=== PATIENT | male | born 1995 | race Caucasian/White ===

== ENCOUNTER 2021-11-27 09:16 | Inpatient (IN) ==
[2021-11-27] MEDS ORDERED: Iopamidol - 370 500 ML MLS IVP ONE (10:16)
[2021-11-27 11:02] LABS: Basophils % 0.4 %; Eosinophils # 0.2 K/mcL (0.0-0.6); Eosinophils % 2.7 %; Hematocrit 43.7 % (37.5-50.1); Immature Granulocytes % 0.3 % (0-4); Lymphocytes % 21.9 %; Mean Corpuscular HGB Conc 34.3 g/dL (31.6-35.5); Mean Corpuscular Hemoglobin 30.3 pg (28.0-33.3); Mean Corpuscular Volume 88.3 fL (83.0-100.0); Mean Platelet Volume 10.2 fL (9.4-12.4); Monocytes # 0.7 K/mcL (0.0-1.3); Monocytes % 7.4 %; Platelet Count 332 K/mcL (140-400); Red Blood Count 4.95 M/mcL (4.19-5.50); Red Cell Distribution Width 11.9 % (11.5-14.5); Segmented Neutrophils % 67.3 %; White Blood Count 8.9 K/mcL (4.3-11.1)
[2021-11-27 11:24] LABS: Alanine Aminotransferase 47 Units/L (7-52); Albumin 4.5 g/dL (3.5-5.7); Albumin/Globulin Ratio 1.5 (1.1-2.2); Alkaline Phosphatase 56 Units/L (34-104); Aspartate Amino Transferase 21 Units/L (13-39); BUN/Creatinine Ratio 11 (6-26); Bilirubin,Total 0.8 mg/dL (0.3-1.0); Blood Urea Nitrogen 10 mg/dL (6-20); Calcium 9.1 mg/dL (8.6-10.3); Carbon Dioxide 30 mEq/L (23-29); Chloride 101 mEq/L (98-107); Glucose 99 mg/dL (70-105); Osmolality,Calculated 279 (280-300); Potassium 3.8 mEq/L (3.5-5.1); Sodium 135 mEq/L (136-145); Total Protein 7.5 g/dL (6.4-8.9)
[2021-11-27 14:38] LABS: C-Reactive Protein 49 mg/L (Less than 10)
[2021-11-27] MEDS ORDERED: Morphine Sulfate 2 MG/ML SYRINGE IVP ONE (14:38)
[2021-11-27] MEDS ORDERED: Naloxone 0.4 MG/ML INJ IVP PRN (15:41)
[2021-11-27] MEDS ORDERED: Ondansetron ODT 4 MG TAB.RAPDIS SL PRN (15:41)
[2021-11-27] MEDS ORDERED: *HR* HYDROcodone/Acet 5/325 mg TABLET PO PRN (15:41)
[2021-11-27] MEDS ORDERED: Melatonin 3 MG TABLET PO PRN (15:41)
[2021-11-27] MEDS ORDERED: Acetaminophen 325 MG TABLET PO PRN (15:41)
[2021-11-27] MEDS: *HR* OxyCODONE Immed Rel 5 MG TABLET PO PRN ×2 (17:24→23:24)
[2021-11-27] MEDS ORDERED: Morphine Sulfate 2 MG/ML SYRINGE IVP PRN (17:40)
[2021-11-27] MEDS ORDERED: Piperacillin/Tazobactam 3.375 GM in 0.9 % Sodium Chloride Mini Bag 100 ML IVPB SCH (18:00)
[2021-11-27] MEDS: Piperacillin/Tazobactam 3.375 GM in 0.9 % Sodium Chloride Mini Bag 100 ML IVPB SCH (18:53)
[2021-11-27] MEDS: *HR* Heparin 5,000 UNIT/ML VIAL SQ SCH ×2 (18:53→23:31)
[2021-11-27] MEDS ORDERED: Vancomycin 2,000 MG/520 ML IV.SOLN IVPB ONE (19:00)
[2021-11-27] MEDS ORDERED: 0.9 % Sodium Chloride 1,000 ML IVC SCH (23:15)
[2021-11-27] MEDS: Vancomycin 2,000 MG/520 ML IV.SOLN IVPB SCH (23:21)
[2021-11-28] MEDS ORDERED: Fluticasone Propionate Nasal 50 MCG/SPRAY BOTTLE NS PRN ×2 (00:11→17:53)
[2021-11-28] MEDS: Piperacillin/Tazobactam 3.375 GM in 0.9 % Sodium Chloride Mini Bag 100 ML IVPB SCH ×4 (00:48→23:03)
[2021-11-28] MEDS: *HR* Heparin 5,000 UNIT/ML VIAL SQ SCH ×2 (05:01→16:56)
[2021-11-28 08:04] LABS: Basophils # 0.1 K/mcL (0.0-0.2); Basophils % 0.6 %; Eosinophils # 0.4 K/mcL (0.0-0.6); Eosinophils % 4.5 %; Hematocrit 40.3 % (37.5-50.1); Hemoglobin 13.8 g/dL (12.9-16.9); Immature Granulocytes % 0.1 % (0-4); Lymphocytes # 2.2 K/mcL (0.6-4.6); Lymphocytes % 27.8 %; Mean Corpuscular HGB Conc 34.2 g/dL (31.6-35.5); Mean Corpuscular Hemoglobin 30.2 pg (28.0-33.3); Mean Corpuscular Volume 88.2 fL (83.0-100.0); Mean Platelet Volume 10.4 fL (9.4-12.4); Monocytes # 0.6 K/mcL (0.0-1.3); Monocytes % 7.6 %; Neutrophils # 4.7 K/mcL (1.6-8.9); Platelet Count 311 K/mcL (140-400); Red Blood Count 4.57 M/mcL (4.19-5.50); Red Cell Distribution Width 11.8 % (11.5-14.5); Segmented Neutrophils % 59.4 %; White Blood Count 7.9 K/mcL (4.3-11.1)
[2021-11-28] MEDS: *HR* OxyCODONE Immed Rel 5 MG TABLET PO PRN (08:24)
[2021-11-28 08:26] LABS: BUN/Creatinine Ratio 10 (6-26); Blood Urea Nitrogen 9 mg/dL (6-20); Calcium 8.5 mg/dL (8.6-10.3); Carbon Dioxide 29 mEq/L (23-29); Chloride 104 mEq/L (98-107); Glucose 100 mg/dL (70-105); Osmolality,Calculated 283 (280-300); Potassium 4.1 mEq/L (3.5-5.1); Sodium 137 mEq/L (136-145)
[2021-11-28] MEDS ORDERED: Ethanol\\Acetic Acid\\Na Ace\\Ben 1,000 ML IRRIG.SOLN IR ONE (09:11)
[2021-11-28] MEDS ORDERED: *HR* Midazolam HCl 2 MG/2 ML VIAL ONE (11:02)
[2021-11-28] MEDS ORDERED: *HR* FentaNYL (PF) 100 MCG/2 ML VIAL ONE (11:02)
[2021-11-28] MEDS ORDERED: Lidocaine -MPF 2% 5 ML VIAL ONE (11:02)
[2021-11-28] MEDS ORDERED: *HR* Propofol 200 MG/20 ML VIAL IVP ONE (11:02)
[2021-11-28] MEDS ORDERED: Famotidine 20 MG/2 ML VIAL IVP ONE (11:06)
[2021-11-28] MEDS ORDERED: Acetaminophen IV 1,000 MG/100 ML BAG IVPB ONE (11:06)
[2021-11-28] MEDS ORDERED: Ondansetron 4 MG/2 ML VIAL ONE (13:45)
[2021-11-28] MEDS ORDERED: Vancomycin 1,000 MG VIAL ONE (13:49)
[2021-11-28] MEDS ORDERED: *HR* HYDROMORPHONE 2 MG/ML VIAL ONE (13:56)
[2021-11-28] MEDS ORDERED: Povidone-Iodine 45 ML, Sodium Chloride IRRigation 1,000 ML IR ONE (16:00)
[2021-11-28] MEDS ORDERED: TOTAL JOINT MIXTURE (100ML) INTRAART ONE (16:00)
[2021-11-28] MEDS: Vancomycin 2,000 MG/520 ML IV.SOLN IVPB SCH ×2 (16:55→19:41)
[2021-11-28] MEDS ORDERED: 0.9 % Sodium Chloride 1,000 ML IVC SCH (17:53)
[2021-11-28] MEDS ORDERED: Melatonin 3 MG TABLET PO PRN (17:53)
[2021-11-28] MEDS ORDERED: Naloxone 0.4 MG/ML INJ IVP PRN (17:53)
[2021-11-28] MEDS ORDERED: Ondansetron ODT 4 MG TAB.RAPDIS SL PRN (17:53)
[2021-11-28] MEDS ORDERED: Morphine Sulfate 2 MG/ML SYRINGE IVP PRN (17:53)
[2021-11-28] MEDS ORDERED: Vancomycin 2,000 MG/520 ML IV.SOLN IVPB SCH (18:00)
[2021-11-28] MEDS: *HR* HYDROcodone/Acet 5/325 mg TABLET PO PRN (21:37)
[2021-11-29] MEDS: Vancomycin 2,000 MG/520 ML IV.SOLN IVPB SCH (06:36)
[2021-11-29] MEDS: Piperacillin/Tazobactam 3.375 GM in 0.9 % Sodium Chloride Mini Bag 100 ML IVPB SCH ×3 (09:01→23:03)
[2021-11-29] MEDS: *HR* HYDROcodone/Acet 5/325 mg TABLET PO PRN ×2 (09:01→16:29)
[2021-11-29] MEDS: Aspirin 81 MG TAB.CHEW PO SCH ×2 (13:42→21:10)
[2021-11-29] MEDS: Ketorolac 30 MG/ML VIAL IVP PRN ×2 (13:48→21:10)
[2021-11-29] MEDS: Acetaminophen 325 MG TABLET PO PRN (16:29)
[2021-11-29] MEDS: Vancomycin 1,500 MG/265 ML IV.SOLN IVPB SCH (21:10)
[2021-11-30 02:04] LABS: Hematocrit 36.8 % (37.5-50.1); Hemoglobin 12.5 g/dL (12.9-16.9); Mean Corpuscular Hemoglobin 29.8 pg (28.0-33.3); Mean Corpuscular Volume 87.6 fL (83.0-100.0); Mean Platelet Volume 10.4 fL (9.4-12.4); Platelet Count 309 K/mcL (140-400); Red Cell Distribution Width 11.7 % (11.5-14.5); White Blood Count 8.3 K/mcL (4.3-11.1)
[2021-11-30 02:28] LABS: BUN/Creatinine Ratio 14 (6-26); Blood Urea Nitrogen 10 mg/dL (6-20); Calcium 7.9 mg/dL (8.6-10.3); Carbon Dioxide 26 mEq/L (23-29); Chloride 110 mEq/L (98-107); Glucose 111 mg/dL (70-105); Osmolality,Calculated 294 (280-300); Potassium 3.8 mEq/L (3.5-5.1); Sodium 142 mEq/L (136-145)
[2021-11-30] MEDS: Vancomycin 1,500 MG/265 ML IV.SOLN IVPB SCH ×2 (04:51→12:06)
[2021-11-30 07:59] VITALS: BP 127/76; PULSE 68; TEMP 98.7; O2SAT 99
[2021-11-30] MEDS: Acetaminophen 325 MG TABLET PO PRN (10:09)
[2021-11-30] MEDS: Aspirin 81 MG TAB.CHEW PO SCH (10:09)
[2021-11-30] MEDS: *HR* HYDROcodone/Acet 5/325 mg TABLET PO PRN (10:09)
== END 2021-11-30 14:18 | disposition home or self-care (01) | DRG 464 ==
LOC: EMEROOARM 09:16 → 4WAOSI 09:16 → SUATTDRO 18:20 → 4WAOSI 20:08
PROVIDERS: ADMIT Pharmacist; ATTEND Student in an Organized Health Care Education/Training Program